=== PATIENT | female | born 1970 | race Two or more races ===

== ENCOUNTER 2023-10-03 17:28 | Emergency (ER) | payer OTHER ==
[~2023-10-03] VITALS: Ht 162.6 cm; Wt 81.5 kg
[2023-10-03 17:55] VITALS: PULSE 88; RESP 19; TEMP 98.1; O2SAT 98
[2023-10-03 18:43] LABS: Basophils # (auto) 0 10 ^3/uL (0-0.2); Basophils % (auto) 0.2 % (0.0-2.0); Eosinophils # (auto) 0 10 ^3/uL (0-0.8); Eosinophils % (auto) 0.1 % (0.0-7.0); Hematocrit 40.3 % (36.0-46.0); Hemoglobin 13.4 g/dL (12.2-16.2); Lymphocytes # (auto) 0.6 10 ^3/uL (0.4-5.4); Lymphocytes % (auto) 4.2 % (10.0-50.0); Mean Corpuscular Hemoglobin 27.7 pg (28.0-32.0); Mean Corpuscular Hgb Conc. 33.3 g/dL (32.0-36.0); Mean Corpuscular Volume 83.1 fL (80.0-100.0); Monocytes # (auto) 0.3 10 ^3/uL (0-1.3); Monocytes % (auto) 1.8 % (0.0-12.0); Neutrophils # (auto) 13.1 10 ^3/uL (1.6-8.6); Neutrophils % (auto) 93.7 % (37.0-80.0); Nucleated Red Blood Cells % 0.1 %; Red Blood Cells 4.85 10^6/uL (4.0-5.20); Red Cell Distribution Width 13.1 % (11.8-14.3); White Blood Cell 13.9 10^3/uL (4.4-10.8)
[2023-10-03] MEDS: DICYCLOMINE HCL (10MG/ML) 2 ML AMPULE IM ONE (18:44)
[2023-10-03 18:54] LABS: Chloride 108 mmol/L (98-107); Potassium 3.8 mmol/L (3.5-5.1); Sodium 141 mmol/L (136-145)
[2023-10-03 18:55] LABS: Anion Gap 7 (5-15); Calcium 9.7 mg/dL (8.5-10.1); Carbon Dioxide 26 mmol/L (20-30)
[2023-10-03 19:00] VITALS: BP 126/77; PULSE 96; RESP 14; O2SAT 97
[2023-10-03 19:00] LABS: BUN/Creatinine Ratio 22.2 (10.0-20.0); Blood Urea Nitrogen 18 mg/dL (9-23); Glucose 167 mg/dL (74-106)
[2023-10-03] MEDS: cefTRIAXone 1GM/50ML D5W 50 ML IV ONE (20:26)
[2023-10-03 20:35] LABS: Urine Bacteria None Seen /hpf (None Seen)
[2023-10-03] MEDS: METOCLOPRAMIDE HCL 5MG/ml INJ 2ml VIAL IV ONE (20:37)
[2023-10-03 20:49] LABS: Urine Blood 1+ /uL (Negative); Urine Clarity Clear (Clear); Urine Color Yellow (Yellow); Urine Mucus FEW (None Seen); Urine Protein, UAD TRACE (Negative); Urine Specific Gravity 1.027 (1.001-1.035); Urine Urobilinogen Normal (Negative); Urine WBC 1 /hpf (0 - 5); Urine pH 6.5 (5.0-9.0)
[2023-10-03] MEDS: HALOPERIDOL LACTATE 5 MG/ML INJ VIAL IM ONE (21:05)
[2023-10-03] MEDS ORDERED: METO-281 PO (21:21)
[2023-10-03] MEDS ORDERED: CEPH500C PO (21:21)
== END 2023-10-03 21:32 | disposition home or self-care (01) ==
LOC: ER 17:28 → EDBD 17:28 → ER 21:32
DX: R10.84 Generalized abdominal pain (principal); R11.10 Vomiting, unspecified; Z90.49 Acquired absence of other specified parts of digestive tract; Z90.710 Acquired absence of both cervix and uterus; Z88.0 Allergy status to penicillin; Z88.2 Allergy status to sulfonamides; Z91.018 Allergy to other foods
CPT/HCPCS: 36415; 74176; 80048; 81001; 83690; 84484; 85025; 93005; 96365; 96372; 96375; 99285; J0500; J0696; J1630; J2765